=== PATIENT | female | born 1990 | race Caucasian/White ===

== ENCOUNTER 2024-07-23 11:36 | Day surgery (SDC) | payer OTHER ==
[2024-07-23 12:18] LABS: BASO % 0.6 % (0-2.0); EOS % 1.7 % (0-4.5); HEMATOCRIT 31.8 % (32.4-45.2); LYMPH % 38.2 % (8-40); MCH 21.9 pg (25.7-33.7); MCHC 31.3 g/dl (32.0-36.0); MEAN CELL VOLUME 69.8 fl (80-96); MEAN PLT VOLUME 7.2 fl (7.5-11.1); MONO % 9.5 % (3.8-10.2); PLATELET COUNT 398 10^3/uL (134-434); RBC 4.56 M/mm3 (3.60-5.2); RDW 16.8 % (11.6-15.6); WHITE BLOOD COUNT 9.4 K/mm3 (4.0-10.0)
[2024-07-23] MEDS: FERRIC CARBOXYMALTOSE 750 MG in SODIUM CHLORIDE 250 ML IVPB ONE (12:20)
[2024-07-23 12:41] LABS: ANISOCYTOSIS 1+; MACROCYTOSIS 1+
[2024-07-23 16:29] VITALS: RESP 16; TEMP 98.5
[2024-07-23 16:33] VITALS: BP 110/62; PULSE 82
== END 2024-07-23 13:30 | disposition home or self-care (01) ==
LOC: JONCCHEMO 11:36 → J7W 11:37 → JONCCHEMO 13:30
PROVIDERS: ATTEND Internal Medicine Hematology & Oncology
PROC: 3E033GC Introduction of Other Therapeutic Substance into Peripheral Vein, Percutaneous Approach (ICD-10-PCS; principal; 2024-07-23)
DX: D50.9 Iron deficiency anemia, unspecified (principal)
CPT/HCPCS: 36415; 85025; 96365; J1439

== ENCOUNTER 2024-07-30 11:46 | Day surgery (SDC) | payer OTHER ==
[2024-07-30] MEDS: FERRIC CARBOXYMALTOSE 750 MG in SODIUM CHLORIDE 250 ML IVPB ONE (12:00)
[2024-07-30 12:53] VITALS: RESP 18; TEMP 97.4
[2024-07-30 12:56] VITALS: BP 114/65; PULSE 87
== END 2024-07-30 13:05 | disposition home or self-care (01) ==
LOC: JONCCHEMO 11:46
PROVIDERS: ATTEND Internal Medicine Hematology & Oncology
PROC: 3E033GC Introduction of Other Therapeutic Substance into Peripheral Vein, Percutaneous Approach (ICD-10-PCS; principal; 2024-07-30)
DX: D50.9 Iron deficiency anemia, unspecified (principal)
CPT/HCPCS: 96365; J1439